=== PATIENT | female | born 1985 | race Caucasian/White ===

== ENCOUNTER → 2017-03-15 | Outpatient (CLI) | payer OTHER ==
[~2017-03-15] MED LIST: GLUCOSAMINE &1 EAC1 PO; GUMMI BEAR MUL1 EACH PO; MOBIC7.5 MG PO; TRIAMCINOLONE A15 G2 TOP
== END | disposition disaster alternative care site (69) ==
LOC: GRAD 15:20
DX: R94.5 Abnormal results of liver function studies (principal); K80.20 Calculus of gallbladder without cholecystitis without obstruction; R16.1 Splenomegaly, not elsewhere classified

== ENCOUNTER → 2017-04-14 | Day surgery (SDC) | payer OTHER ==
[~2017-04-14] VITALS: Ht 152.4 cm; Wt 61.4 kg
== END | disposition disaster alternative care site (69) ==
LOC: GPOC 04-13 15:00 → GEND 07:03 → GPOC 15:00
PROC: 0DB98ZX Excision of Duodenum, Via Natural or Artificial Opening Endoscopic, Diagnostic (ICD-10-PCS; principal; 2017-04-14)
DX: K31.89 Other diseases of stomach and duodenum (principal); R94.5 Abnormal results of liver function studies; Z90.49 Acquired absence of other specified parts of digestive tract; Z98.890 Other specified postprocedural states
CPT/HCPCS: J2001; J7120